=== PATIENT | male | born 1990 | race Caucasian/White ===

== ENCOUNTER 2017-04-10 01:45 | Emergency (ER) | payer OTHER ==
[2017-04-10 02:00] VITALS: BP 128/80; PULSE 107; RESP 18; O2SAT 96
[2017-04-10] MEDS ORDERED: SODIUM CHLOR 0.9% 1000 ML INJ 1,000 ML IV ONE (02:00)
[2017-04-10] MEDS ORDERED: LORazepam 0.5 MG TAB PO ONE (02:00)
[2017-04-10 02:55] VITALS: BP 139/82; PULSE 99; RESP 18; O2SAT 98
[2017-04-10 04:27] LABS: AUTOMATED NEUTROPHIL # 10.7 TH/MM3 (1.8-7.7); BASOPHIL % 0.3 % (0.0-2.0); HEMATOCRIT 44.2 % (39.0-51.0); HEMO FLAGS DIFF FINAL; LYMPH % 11.6 % (9.0-44.0); LYMPHOCYTE # 1.5 TH/MM3 (1.0-4.8); MEAN CELL VOLUME 93.4 FL (80.0-100.0); MEAN CORPUSCULAR HEMOGLOBIN 31.8 PG (27.0-34.0); NEUT % 84.1 % (16.0-70.0); PLATELET COUNT 385 TH/MM3 (150-450); RED BLOOD COUNT 4.73 MIL/MM3 (4.50-5.90); RED CELL DISTRIBUTION WIDTH 13.2 % (11.6-17.2); WHITE BLOOD COUNT 12.8 TH/MM3 (4.0-11.0)
[2017-04-10 04:34] LABS: ALCOHOL 78 MG/DL (0-5); ALKALINE PHOSPHATASE 67 U/L (45-117); ALT (GPT) 20 U/L (12-78); ANION GAP 10 MEQ/L (5-15); AST (GOT) 13 U/L (15-37); BICARBONATE 23.4 MEQ/L (21.0-32.0); BLOOD UREA NITROGEN 20 MG/DL (7-18); CHLORIDE 106 MEQ/L (98-107); GLOMERULAR FILTRATION RATE 87 ML/MIN (>89); SODIUM (NA) 139 MEQ/L (136-145); TOTAL BILIRUBIN ADULT 0.3 MG/DL (0.2-1.0)
[2017-04-10 05:16] VITALS: TEMP 98.8
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
[2017-04-10 07:07] VITALS: BP 130/85; PULSE 99; RESP 18; O2SAT 98
--- NOTE | 2017-04-10 19:04 | PD ---
History of Present Illness Chief Complaint: Psychiatric Symptoms Time Seen by Provider: 19:00 Travel History International Travel<30 Days: No Contact w/Intl Traveler<30days: No Known affected area: No Legal Status Legal Status: Manrique Act Manrique Act Signed By: Delfin Wolfe History of Present Illness: 26-year-old male brought in under a Manrique act for inappropriate and suicidal behavior. At this point the patient is calm, pleasant and cooperative. He is no longer felt to be intoxicated with cocaine. He denies any suicidal or homicidal ideation, plan or intent. He has no psychotic symptoms and his cognition is intact. He is verbally arsalan for safety and he is competent to do so. He owns his own home locally and lives by himself. However, he reports he has the support of both his parents, who live in [facility]. The patient would like to go home and is not felt to meet criteria for Manrique act or involuntary psychiatric hospitalization at this time. PFSH Past Medical History Bipolar Disorder: Yes Anxiety: Yes Psychiatric History Psychiatric History Hx Psychiatric Treatment: HX: DEPRESSION, ANXIETY, AND BIPOLAR. This physician sees no significant clinically objective evidence of bipolar disorder at this time. Instead, the patient was recommended to discontinue his cocaine use. History of Inpatient Treatment: No Guns or firearms in home: No Social History Hx Alcohol Use: No Hx Tobacco Use: Yes Hx Substance Use: No Hx of Substance Use Treatment: Yes Allergies-Medications (Allergen,Severity, Reaction): Coded Allergies: No Known Allergies (Unverified , 02/29/16) Reported Meds & Prescriptions Reported Meds & Active Scripts Active No Active Prescriptions or Reported Medications Review of Systems Except as stated in HPI: all other systems reviewed are Neg Mental Status Examination Appearance: Appropriate Consciousness: Alert Orientation: x4 Motor Activity: Normal gait Speech: Unremarkable Language: Adequate Fund of Knowledge: Adequate Attention and Concentration: Adequate Memory: Unremarkable Mood: Appropriate Affect: Appropriate Thought Process & Associations: Intact Thought Content: Appropriate Hallucination Type: None Delusion Type: None Suicidal Ideation: No Suicidal Plan: No Suicidal Intention: No Homicidal Ideation: No Homicidal Plan: No Homicidal Intention: No Insight: Adequate Judgment: Adequate MDM Medical Decision Making Medical Record Reviewed: Yes Assessment/Plan Patient interviewed at bedside, medical record reviewed and case discussed with Mary patient's nurse. Patient remains calm cooperative and pleasant. He denies suicidal or homicidal ideation, plan or intent. He is verbally arsalan for safety and he is competent to do so. He was recommended to stop cocaine use and go to [facility] for further treatment. At this time , he does not meet criteria for Manrique act or involuntary psychiatric hospitalization. Orders Orders Sodium Chlor 0.9% 1000 Ml Inj (Ns 1000 M (04/10/17 02:00) Lorazepam (Ativan) (04/10/17 02:00) Psych Screen (04/10/17 04:21) Complete Blood Count With Diff (04/10/17 02:46) Alcohol (Ethanol) (04/10/17 02:46) Comprehensive Metabolic Panel (04/10/17 02:46) Drug Screen, Random Urine (04/10/17 05:06) Diet Regular Basic (04/10/17 Lunch) Diet Regular Basic (04/10/17 Dinner) Results Vital Signs Date Time Temp Pulse Resp B/P (MAP) Pulse Ox O2 Delivery O2 Flow Rate FiO2 04/10/17 07:07 99 18 130/85 (100) 98 Room Air 04/10/17 05:16 98.8 04/10/17 02:55 99 18 139/82 (101) 98 Room Air 04/10/17 02:00 107 18 128/80 (96) 96 Room Air Laboratory Tests Test 04/10/17 02:46 04/10/17 04:45 White Blood Count 12.8 Red Blood Count 4.73 Hemoglobin 15.0 Hematocrit 44.2 Mean Corpuscular Volume 93.4 Mean Corpuscular Hemoglobin 31.8 Mean Corpuscular Hemoglobin Concent 34.0 Red Cell Distribution Width 13.2 Platelet Count 385 Mean Platelet Volume 7.6 Neutrophils (%) (Auto) 84.1 Lymphocytes (%) (Auto) 11.6 Monocytes (%) (Auto) 4.0 Eosinophils (%) (Auto) 0.0 Basophils (%) (Auto) 0.3 Neutrophils # (Auto) 10.7 Lymphocytes # (Auto) 1.5 Monocytes # (Auto) 0.5 Eosinophils # (Auto) 0.0 Basophils # (Auto) 0.0 CBC Comment DIFF FINAL Differential Comment Blood Urea Nitrogen 20 Creatinine 1.04 Random Glucose 112 Total Protein 8.5 Albumin 4.6 Calcium Level 9.0 Alkaline Phosphatase 67 Aspartate Amino Transf (AST/SGOT) 13 Alanine Aminotransferase (ALT/SGPT) 20 Total Bilirubin 0.3 Sodium Level 139 Potassium Level 4.0 Chloride Level 106 Carbon Dioxide Level 23.4 Anion Gap 10 Estimat Glomerular Filtration Rate 87 Ethyl Alcohol Level 78 Urine Opiates Screen NEG Urine Barbiturates Screen NEG Urine Amphetamines Screen NEG Urine Benzodiazepines Screen NEG Urine Cocaine Screen POS Urine Cannabinoids Screen POS Diagnosis Primary Impression: Cocaine abuse Prescriptions No Active Prescriptions or Reported Meds Condition: Stable Jarrod Segura MD Apr 10, 2017 19:04
--- NOTE | 2017-04-10 19:21 | PD ---
Physical Exam Date Seen by Provider: Apr 10, 2017 Narrative For full history and physical examination please see previous provider's notes. Data Data Last Documented VS Vital Signs Date Time Temp Pulse Resp B/P (MAP) Pulse Ox O2 Delivery O2 Flow Rate FiO2 04/10/17 07:07 99 18 130/85 (100) 98 Room Air 04/10/17 05:16 98.8 Orders Orders Sodium Chlor 0.9% 1000 Ml Inj (Ns 1000 M (04/10/17 02:00) Lorazepam (Ativan) (04/10/17 02:00) Psych Screen (04/10/17 04:21) Complete Blood Count With Diff (04/10/17 02:46) Alcohol (Ethanol) (04/10/17 02:46) Comprehensive Metabolic Panel (04/10/17 02:46) Drug Screen, Random Urine (04/10/17 05:06) Diet Regular Basic (04/10/17 Lunch) Diet Regular Basic (04/10/17 Dinner) Labs Laboratory Tests Test 04/10/17 02:46 04/10/17 04:45 White Blood Count 12.8 TH/MM3 Red Blood Count 4.73 MIL/MM3 Hemoglobin 15.0 GM/DL Hematocrit 44.2 % Mean Corpuscular Volume 93.4 FL Mean Corpuscular Hemoglobin 31.8 PG Mean Corpuscular Hemoglobin Concent 34.0 % Red Cell Distribution Width 13.2 % Platelet Count 385 TH/MM3 Mean Platelet Volume 7.6 FL Neutrophils (%) (Auto) 84.1 % Lymphocytes (%) (Auto) 11.6 % Monocytes (%) (Auto) 4.0 % Eosinophils (%) (Auto) 0.0 % Basophils (%) (Auto) 0.3 % Neutrophils # (Auto) 10.7 TH/MM3 Lymphocytes # (Auto) 1.5 TH/MM3 Monocytes # (Auto) 0.5 TH/MM3 Eosinophils # (Auto) 0.0 TH/MM3 Basophils # (Auto) 0.0 TH/MM3 CBC Comment DIFF FINAL Differential Comment Blood Urea Nitrogen 20 MG/DL Creatinine 1.04 MG/DL Random Glucose 112 MG/DL Total Protein 8.5 GM/DL Albumin 4.6 GM/DL Calcium Level 9.0 MG/DL Alkaline Phosphatase 67 U/L Aspartate Amino Transf (AST/SGOT) 13 U/L Alanine Aminotransferase (ALT/SGPT) 20 U/L Total Bilirubin 0.3 MG/DL Sodium Level 139 MEQ/L Potassium Level 4.0 MEQ/L Chloride Level 106 MEQ/L Carbon Dioxide Level 23.4 MEQ/L Anion Gap 10 MEQ/L Estimat Glomerular Filtration Rate 87 ML/MIN Ethyl Alcohol Level 78 MG/DL Urine Opiates Screen NEG Urine Barbiturates Screen NEG Urine Amphetamines Screen NEG Urine Benzodiazepines Screen NEG Urine Cocaine Screen POS Urine Cannabinoids Screen POS MDM Medical Record Reviewed: Yes Supervised Visit with EMILY: No Narrative Course Patient is brought into the emergency department under Burton parisi for psychiatric evaluation. Patient was seen and evaluated in the emergency department, he was medically cleared. Patient was then seen and evaluated by the psychiatrist, Burton act was lifted. Patient is to be discharged home. Diagnosis Primary Impression: Cocaine abuse Referrals: [facility] Instructions: General Instructions Additional Instruction: Follow-up at [facility] Avoid illicit drug use Return to emergency department for any new or worsening symptoms Scripts No Active Prescriptions or Reported Meds Disposition: 01 DISCHARGE HOME Condition: Stable Lamar Moody [facility] Apr 10, 2017 19:21
== END 2017-04-10 19:53 | disposition home or self-care (01) ==
LOC: NEPD 01:45 → NEPJ 19:53
DX: F14.10 Cocaine abuse, uncomplicated (principal); F31.9 Bipolar disorder, unspecified
CPT/HCPCS: 80053; 80307; 85025; 96360; 99284; J7030

== ENCOUNTER 2017-10-07 22:36 | Emergency (ER) | payer SELFPAY ==
[~2017-10-07] VITALS: Ht 180.3 cm; Wt 56.7 kg
[2017-10-07 22:36] VITALS: BP 122/72; PULSE 118; RESP 18; TEMP 98.2; O2SAT 97
[2017-10-07 22:40] VITALS: BP 122/72; PULSE 118; RESP 18; TEMP 98.2; O2SAT 97
[2017-10-07] MEDS ORDERED: TETANUS/DIPHTHERIA TOXOID ADULT 0.5 ML VIAL IM ONE (23:00)
[2017-10-07] MEDS ORDERED: SODIUM CHLOR 0.9% 1000 ML INJ 1,000 ML IV ONE ×2 (23:00)
[2017-10-07] MEDS ORDERED: SODIUM CHLORIDE 0.9% FLUSH 10 ML FLUSH IVF PRN (23:00)
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
[2017-10-07 23:16] LABS: AUTOMATED NEUTROPHIL # 20.5 TH/MM3 (1.8-7.7); BASOPHIL # 0.7 TH/MM3 (0-0.2); BASOPHIL % 3.1 % (0.0-2.0); EOSINOPHIL % 0.1 % (0.0-4.0); HEMATOCRIT 45.7 % (39.0-51.0); HEMOGLOBIN 15.4 GM/DL (13.0-17.0); LYMPH % 5.7 % (9.0-44.0); LYMPHOCYTE # 1.3 TH/MM3 (1.0-4.8); MEAN CELL VOLUME 92.4 FL (80.0-100.0); MEAN CORPUSCULAR HEMOGLOBIN 31.1 PG (27.0-34.0); MEAN CORPUSCULAR HGB CONC 33.7 % (32.0-36.0); MEAN PLATELET VOLUME 7.8 FL (7.0-11.0); MONO % 4.7 % (0.0-8.0); MONOCYTE # 1.1 TH/MM3 (0-0.9); NEUT % 86.4 % (16.0-70.0); PLATELET COUNT 360 TH/MM3 (150-450); RED BLOOD COUNT 4.95 MIL/MM3 (4.50-5.90); RED CELL DISTRIBUTION WIDTH 11.9 % (11.6-17.2); WHITE BLOOD COUNT 23.6 TH/MM3 (4.0-11.0)
[2017-10-07 23:23] LABS: CHLORIDE 100 MEQ/L (98-107); SODIUM (NA) 135 MEQ/L (136-145)
[2017-10-07 23:26] LABS: BLOOD UREA NITROGEN 22 MG/DL (7-18); GLUCOSE,RANDOM 99 MG/DL (74-106)
[2017-10-07 23:29] LABS: GLOMERULAR FILTRATION RATE 46 ML/MIN (>89)
[2017-10-07 23:56] LABS: INTERNATIONAL NORMALIZED RATIO 1.1 RATIO; PROTHROMBIN TIME - PATIENT 11.4 SEC (9.8-11.6)
[2017-10-08] MEDS ORDERED: VANCOMYCIN INJ 1,000 MG in SODIUM CHLOR 0.9% 250 ML INJ 250 ML IV STA (00:11)
[2017-10-08] MEDS ORDERED: PIPERACIL-TAZO 4.5 GM PREMIX 100 ML IV STA (00:11)
[2017-10-08 00:15] VITALS: BP 124/76
[2017-10-08 00:24] LABS: BLOOD, URINE TRACE (NEG); GLUCOSE,URINE NEG (NEG); KETONE, URINE NEG (NEG); NITRITE,URINE NEG (NEG); PH, URINE 5.5 (5.0-8.5); URINE LEUKOCYTE ESTERASE NEG (NEG)
[2017-10-08 00:26] LABS: BILIRUBIN, URINE NEG (NEG); URINE COLOR AMBER (YELLW/STRAW)
[2017-10-08 00:28] LABS: RBC, URINE 0-2 /hpf (0-3); SQUAMOUS EPITHELIAL CELL URINE 0-5 /hpf (0-5); WBC, URINE 0-2 /hpf (0-5)
--- NOTE | 2017-10-08 00:35 | RADRPT ---
EXAM DATE/TIME: 10/07/2017 23:47 [facility] COMPARISON: No previous studies available for comparison. INDICATIONS : Chest pain. MEDICAL HISTORY : None. SURGICAL HISTORY : None. ENCOUNTER: Initial ACUITY: 1 day PAIN SCORE: 5/10 LOCATION: Bilateral chest FINDINGS: The lungs are clear. Cardiomediastinal silhouette within normal limits. No evidence of pleural effusi on or pneumothorax. CONCLUSION: No acute cardiopulmonary disease identified. Sotero Herrera MD on October 08, 2017 at 0:33 Board Certified Radiologist. This report was verified electronically.
== END 2017-10-08 00:38 | disposition left against medical advice (07) ==
LOC: PHED 22:36
DX: R65.10 Systemic inflammatory response syndrome (SIRS) of non-infectious origin without acute organ dysfunction (principal); N28.9 Disorder of kidney and ureter, unspecified; R00.0 Tachycardia, unspecified; F31.9 Bipolar disorder, unspecified; F41.9 Anxiety disorder, unspecified; Z72.0 Tobacco use
CPT/HCPCS: 71046; 80048; 80307; 81001; 85025; 85610; 85730; 90471; 90714; 96360; 99284; J7030